=== PATIENT | male | born 1990 | race Caucasian/White ===

== ENCOUNTER 2022-11-24 18:10 | Emergency (ER) | payer OTHER ==
[~2022-11-24] VITALS: Ht 188 cm; Wt 122.5 kg
[2022-11-24 18:40] VITALS: BP 116/78
--- NOTE | 2022-11-24 20:25 | NUR ---
CHIEF OF VITAL STATISTICS AT PT'S BEDSIDE
[2022-11-24] MEDS ORDERED: NAPR-1192 PO (21:59)
--- NOTE | 2022-11-24 22:32 | NUR ---
PT LEFT WITHOUT RECEIVING DISCHARGE PAPERS.
== END 2022-11-24 22:45 | disposition home or self-care (01) ==
LOC: ER 18:22
DX: S93.432A Sprain of tibiofibular ligament of left ankle, initial encounter (principal); Z79.899 Other long term (current) drug therapy; W01.0XXA Fall on same level from slipping, tripping and stumbling without subsequent striking against object, initial encounter; Y93.89 Activity, other specified; Y92.89 Other specified places as the place of occurrence of the external cause; Y99.8 Other external cause status
CPT/HCPCS: 73590-TC; 73610-TC